=== PATIENT | male | born 1955 | race Caucasian/White ===

== ENCOUNTER 2016-09-02 11:12 | Emergency (ER) | payer BC ==
[~2016-09-02] VITALS: Ht 170.2 cm; Wt 127.3 kg
[2016-09-02 11:15] VITALS: TEMP 99.8
[2016-09-02] MEDS ORDERED: RT ADVAIR 228 DISKUS IH (11:26)
[2016-09-02 12:02] LABS: BASO # 0.1 (0.0-0.2); BASO % 0.7 % (0.0-2.0); EOS # 0.6 (0.0-0.7); EOS % 7.3 % (0-4.0); GRAN # 6.5 (1.4-6.5); GRAN % 77.1 % (42.2-75.2); HEMATOCRIT 46.4 % (42.0-52.0); HEMOGLOBIN 15.4 g/dl (13.5-18.0); LYMPH # 0.5 (1.2-3.4); LYMPH % 5.8 % (20.0-51.0); MEAN CELL VOLUME 91 fl (80.0-100.0); MEAN CORPUSCULAR HEMOGLOBIN 30 pg (27.0-31.0); MEAN CORPUSCULAR HGB CONC 33 g/dl (33.0-37.0); MEAN PLATELET VOLUME 9.6 fl (7.4-10.4); MONO # 0.8 (0.1-0.6); MONO % 8.9 % (1.7-9.3); PLATELET COUNT 316 K/mm3 (130-400); RED BLOOD COUNT 5.12 M/mm3 (4.20-5.60); REDCELL DISTRIBUTION WIDTH-CV 13.5 % (11.5-14.5); WHITE BLOOD COUNT 8.4 K/mm3 (4.8-10.8)
[2016-09-02 12:24] LABS: ADJUSTED CALCIUM 8.8 mg/dL (8.4-10.2); ALBUMIN 4.1 gm/dL (3.5-5.0); BILIRUBIN,TOTAL 0.8 mg/dL (0.0-1.0); CALCIUM 8.9 mg/dL (8.4-10.2); CREATININE, serum 0.79 mg/dL (0.66-1.25); TOTAL PROTEIN 7.4 gm/dL (6.4-8.2)
[2016-09-02] MEDS ORDERED: PREDNISONE20 MG PO (12:52)
[2016-09-02] MEDS ORDERED: ZITHROMAX Z PA250 MG PO (12:52)
[2016-09-02 13:13] VITALS: BP 131/63; PULSE 93
== END 2016-09-02 13:14 | disposition home or self-care (01) ==
LOC: COL.ER 11:12
PROVIDERS: Family Medicine
DX: J20.9 Acute bronchitis, unspecified (principal); Z87.891 Personal history of nicotine dependence; J45.909 Unspecified asthma, uncomplicated
CPT/HCPCS: J2930

== ENCOUNTER 2018-10-27 08:15 | Emergency (ER) | payer BC ==
[~2018-10-27] VITALS: Ht 170.2 cm; Wt 143.2 kg
[~2018-10-27 08:15] MED LIST: PREDNISONE20 MG PO; RT ADVAIR 228 DISKUS IH; ZITHROMAX Z PA250 MG PO
[2018-10-27 08:23] VITALS: TEMP 97.6
[2018-10-27 08:59] LABS: BASO % 0.4 % (0.0-2.0); EOS % 0.3 % (0-4.0); GRAN # 9.4 (1.4-6.5); GRAN % 84.4 % (42.2-75.2); HEMATOCRIT 46.5 % (42.0-52.0); HEMOGLOBIN 15.8 g/dl (13.5-18.0); LYMPH # 1.2 (1.2-3.4); LYMPH % 10.5 % (20.0-51.0); MEAN CELL VOLUME 90 fl (80.0-100.0); MEAN CORPUSCULAR HEMOGLOBIN 31 pg (27.0-31.0); MEAN CORPUSCULAR HGB CONC 34 g/dl (33.0-37.0); MEAN PLATELET VOLUME 9.6 fl (7.4-10.4); MONO # 0.4 (0.1-0.6); PLATELET COUNT 389 K/mm3 (130-400); RED BLOOD COUNT 5.15 M/mm3 (4.20-5.60); REDCELL DISTRIBUTION WIDTH-CV 13.5 % (11.5-14.5)
[2018-10-27 09:22] LABS: ALBUMIN 3.7 gm/dL (3.5-5.0); BILIRUBIN,TOTAL 0.7 mg/dL (0.0-1.0); CALCIUM 8.8 mg/dL (8.4-10.2); CREATININE, serum 0.71 mg/dL (0.66-1.25); POTASSIUM 3.7 mmol/L (3.4-5.0); TOTAL PROTEIN 6.9 gm/dL (6.4-8.2)
[2018-10-27] MEDS ORDERED: ZOFRAN ODT8 MG PO (10:15)
[2018-10-27 10:37] VITALS: BP 132/73; PULSE 70
== END 2018-10-27 10:40 | disposition home or self-care (01) ==
LOC: COL.ER 08:15
PROVIDERS: Emergency Medicine
DX: K46.9 Unspecified abdominal hernia without obstruction or gangrene (principal); R10.0 Acute abdomen; J45.909 Unspecified asthma, uncomplicated; Z79.51 Long term (current) use of inhaled steroids
CPT/HCPCS: J2270; J2405; J7030; Q9967

== ENCOUNTER 2020-05-01 21:08 | Emergency (ER) | payer BC ==
[~2020-05-01] VITALS: Ht 170.2 cm; Wt 129.5 kg
[~2020-05-01 21:08] MED LIST changes: +ZOFRAN ODT8 MG PO
[2020-05-01 23:05] LABS: BASO % 0.2 % (0.0-2.0); GRAN % 81.6 % (42.2-75.2); HEMATOCRIT 49.1 % (42.0-52.0); HEMOGLOBIN 16.5 g/dl (13.5-18.0); LYMPH # 0.7 (1.2-3.4); LYMPH % 10.9 % (20.0-51.0); MEAN CELL VOLUME 90 fl (80.0-100.0); MEAN CORPUSCULAR HEMOGLOBIN 30 pg (27.0-31.0); MEAN CORPUSCULAR HGB CONC 34 g/dl (33.0-37.0); MEAN PLATELET VOLUME 9.9 fl (7.4-10.4); MONO # 0.4 (0.1-0.6); PLATELET COUNT 240 K/mm3 (130-400); RED BLOOD COUNT 5.46 M/mm3 (4.20-5.60); REDCELL DISTRIBUTION WIDTH-CV 13.5 % (11.5-14.5)
[2020-05-01 23:16] LABS: ALBUMIN 4.1 gm/dL (3.5-5.0); BILIRUBIN,TOTAL 0.7 mg/dL (0.0-1.0); C-REACTIVE PROTEIN 6.3 mg/dL (0.0-0.9); CALCIUM 8.2 mg/dL (8.4-10.2); CREATININE, serum 0.85 (0.66-1.25); POTASSIUM 3.8 mmol/L (3.4-5.0); TOTAL PROTEIN 7.6 gm/dL (6.4-8.2)
[2020-05-02 00:10] VITALS: TEMP 100.8
[2020-05-02] MEDS ORDERED: AMOXICILLIN 8751 TAB PO (01:42)
[2020-05-02] MEDS ORDERED: DOXYCYCLINE 10100 MG PO (01:42)
[2020-05-02 02:20] VITALS: BP 122/59; PULSE 74
== END 2020-05-02 02:20 | disposition home or self-care (01) ==
LOC: COL.ER 21:08
PROVIDERS: Nurse Practitioner
DX: J18.1 Lobar pneumonia, unspecified organism (principal); J45.909 Unspecified asthma, uncomplicated; U07.1 COVID-19; Z79.1 Long term (current) use of non-steroidal anti-inflammatories (NSAID); Z79.51 Long term (current) use of inhaled steroids
CPT/HCPCS: J1100; J1885; J2405; J7030

== ENCOUNTER 2020-05-05 12:49 | Inpatient (IN) | payer BC ==
[~2020-05-05] VITALS: Ht 172.7 cm; Wt 141.0 kg
[~2020-05-05 12:49] MED LIST changes: +AMOXICILLIN 8751 TAB PO; +DOXYCYCLINE 10100 MG PO
[2020-05-05 13:59] LABS: HEMATOCRIT 43.6 % (42.0-52.0); HEMOGLOBIN 14.9 g/dl (13.5-18.0); MEAN CELL VOLUME 88 fl (80.0-100.0); MEAN CORPUSCULAR HEMOGLOBIN 30 pg (27.0-31.0); MEAN CORPUSCULAR HGB CONC 34 g/dl (33.0-37.0); MEAN PLATELET VOLUME 10.2 fl (7.4-10.4); PLATELET COUNT 307 K/mm3 (130-400); RED BLOOD COUNT 4.93 M/mm3 (4.20-5.60); REDCELL DISTRIBUTION WIDTH-CV 13.8 % (11.5-14.5)
[2020-05-05] MEDS ORDERED: DECADRON 4MG TAB4 MG PO (14:01)
[2020-05-05] MEDS ORDERED: ALBUTEROL0.83 MG/ML IH (14:02)
[2020-05-05] MEDS ORDERED: PROBIOTIC ACID1 EAC3 PO (14:03)
[2020-05-05 14:20] LABS: BAND 4 % (0-10); LYMPHOCYTE 8 % (20.0-51.0); NEUTROPHILS 87 % (42.0-75.2)
[2020-05-05 14:21] LABS: PLATELET ESTIMATE NORMAL (NORMAL)
[2020-05-05 15:09] LABS: ALBUMIN 3.5 gm/dL (3.5-5.0); BILIRUBIN,TOTAL 0.8 mg/dL (0.0-1.0); CALCIUM 8.1 mg/dL (8.4-10.2); CREATININE, serum 0.71 (0.66-1.25); POTASSIUM 3.3 mmol/L (3.4-5.0); TOTAL PROTEIN 6.8 gm/dL (6.4-8.2)
[2020-05-05 15:27] LABS: C-REACTIVE PROTEIN 33.3 mg/dL (0.0-0.9)
[2020-05-05 17:15] LABS: INR 1.2 (0.8-3.0); PROTHROMBIN TIME 13.2 SECONDS (9.7-12.8)
--- NOTE | 2020-05-05 17:27 | NUR ---
REPORT RCVD FROM ELGIN BOND IN ED. PT WILL ARRIVE TO MEDICAL FLOOR ROOM 305 SHORTLY.
[2020-05-05 17:45] LABS: ARTERIAL BLD GAS O2 SATURATION 93.9 % (92-100); ARTERIAL BLD GAS TCO2 CT 25.1; ARTERIAL BLOOD GAS BASE EXCESS 0.6 (-2-2); ARTERIAL BLOOD GAS PCO2 35.5 mmHg (35-45); ARTERIAL BLOOD GAS PO2 67.9 mmHg (80-100); ARTERIAL BLOOD GAS pH 7.45 (7.35-7.45)
[2020-05-05 17:46] LABS: MAGNESIUM 2.4 mg/dL (1.6-2.3); PHOSPHOROUS 3.7 mg/dL (2.5-4.5)
[2020-05-05 18:19] VITALS: BP 129/64; PULSE 74; TEMP 97.9
[2020-05-05 21:38] VITALS: BP 126/64; PULSE 72; TEMP 98
--- NOTE | 2020-05-05 23:27 | NUR ---
pt resting in bed sleeping, easy to arouse. pt denies pain and shortness of breath at this time. pt states that oxygen has helped with shortness of breath. oxygen at 4 liters NC. heart sounds are normal and regular. lung sounds are clear, respirations are in the upper 20s. pt denies cough. fluids are running at 125 mls per hour. no other needs at this time.
[2020-05-06] VITALS (7 sets, daily range): BP systolic 105–158; BP diastolic 49–85; PULSE 65–81; TEMP 97.6–98.1
--- NOTE | 2020-05-06 05:27 | NUR ---
pt slept in bed most of the night, with cpap from home. independent in the room, did not call for many needs throughout the night. still on oxygen at 4 liters NC.
--- NOTE | 2020-05-06 08:11 | NUR ---
Assessment complete. Patient sitting up at bedside awaiting breakfast at this time. States that he feels better than he did yesterday. Denies pain or discomfort at this time. IV site is CD&I, flushed well. O2 sat was 89 on vitals assessment, Slowly increased O2 via NC in order to get patient within 90%. HAd to increase to 6 1/2 L, patient denied feeling SOB at this time. Respiratory is aware. Patient denied other needs at this time. Call light is in reach.
[2020-05-06 08:17] LABS: ARTERIAL BLD GAS TCO2 CT 24.5; ARTERIAL BLOOD GAS HCO3 23.5 meq/L (22-26); ARTERIAL BLOOD GAS PO2 60.4 mmHg (80-100); ARTERIAL BLOOD GAS pH 7.44 (7.35-7.45)
[2020-05-06 10:48] LABS: HEMATOCRIT 43.2 % (42.0-52.0); HEMOGLOBIN 14.6 g/dl (13.5-18.0); MEAN CELL VOLUME 88 fl (80.0-100.0); MEAN CORPUSCULAR HEMOGLOBIN 30 pg (27.0-31.0); MEAN CORPUSCULAR HGB CONC 34 g/dl (33.0-37.0); MEAN PLATELET VOLUME 10.4 fl (7.4-10.4); PLATELET COUNT 348 K/mm3 (130-400); REDCELL DISTRIBUTION WIDTH-CV 13.8 % (11.5-14.5)
[2020-05-06 10:59] LABS: ALBUMIN 3.3 gm/dL (3.5-5.0); BILIRUBIN,TOTAL 0.5 mg/dL (0.0-1.0); CALCIUM 8.4 mg/dL (8.4-10.2); CREATININE, serum 0.63 (0.66-1.25); POTASSIUM 3.4 mmol/L (3.4-5.0); TOTAL PROTEIN 6.6 gm/dL (6.4-8.2)
[2020-05-06 11:57] LABS: LYMPHOCYTE 6 % (20.0-51.0); NEUTROPHILS 92 % (42.0-75.2); PLATELET ESTIMATE NORMAL (NORMAL)
[2020-05-06 12:59] LABS: COLLECTION METHOD CLEAN CATCH
[2020-05-06 13:30] LABS: MUCOUS Present /lpf; PH 6 (5-8); SQUAMOUS EPITHELIAL 0-2 /hpf; URINE APPEARANCE Hazy; URINE BACTERIA None Seen /hpf; URINE BILIRUBIN Negative (NEGATIVE); URINE BLOOD Negative (NEGATIVE); URINE COLOR Yellow; URINE GLUCOSE Negative (NEGATIVE); URINE KETONE Negative (NEGATIVE); URINE LEUKOCYTE ESTERASE Negative (NEGATIVE); URINE NITRATE Negative (NEGATIVE); URINE PROTEIN(semi-quant) 1+ (NEGATIVE); URINE RBC 0-2 /hpf; URINE UROBILINOGEN Negative (NEGATIVE)
[2020-05-06 15:26] LABS: ARTERIAL BLD GAS O2 SATURATION 92.5 % (92-100); ARTERIAL BLD GAS TCO2 CT 24.1; ARTERIAL BLOOD GAS BASE EXCESS 0.4 (-2-2); ARTERIAL BLOOD GAS HCO3 23.1 meq/L (22-26); ARTERIAL BLOOD GAS PCO2 31.9 mmHg (35-45); ARTERIAL BLOOD GAS PO2 63.1 mmHg (80-100); ARTERIAL BLOOD GAS pH 7.48 (7.35-7.45)
--- NOTE | 2020-05-06 15:59 | NUR ---
Trolley Car Mechanic attempted to contact patient by phone as he is COVID positive. SW then contacted patient's , Lissa (ph#[phone]) to discuss discharge planning. Patient lives in [place] with his and sees Dr. Gutierrez for primary care. Patient obtains medications from [facility] pharmacy and uses a CPAP at night. Lissa reports patient does not have Advance Directives. Patient is normally independent with ADLS and plans to return home upon discharge. SW will continue to follow.
--- NOTE | 2020-05-06 16:10 | NUR ---
placed pt on airvo 40L fio2 68%. spo2 91%. rn notified
--- NOTE | 2020-05-06 17:05 | NUR ---
Patient has had a good day. Still states that he feels better. He denies feeling SOB breath but pt is now on AIRVO O2 in an effort to improve PO2 levels. Patient is complaint and understands why this is necessary. IVF continue to infuse. Pt continues to deny pain. No other needs were expressed at this time. Call light is in reach.
--- NOTE | 2020-05-06 19:05 | NUR ---
Received report from Mary. Patient is eating his dinner. No complains or needs at this time. He is on airvo at 40L. He is alert, oriented and independent.
--- NOTE | 2020-05-06 20:30 | NUR ---
Patient's blood glucose is 183mg/dl. He refuses the insulin. He said he was not diabetic and never had insulin in his life and he doesn't want to take it.
--- NOTE | 2020-05-06 21:16 | NUR ---
Called blood bank to follow up regarding covid convalsecent plasma and Ronen said that it will probably be available tomorrow.
[2020-05-07] VITALS (12 sets, daily range): BP systolic 112–160; BP diastolic 50–86; PULSE 62–76; TEMP 97.5–98.1
--- NOTE | 2020-05-07 05:56 | NUR ---
Patient states he was able to sleep. He remained afebrile. He denies pain. Still on airvo at 40L, 70%. SPO2 range at 90%-94%. No difficulty of breathing noted.
[2020-05-07 09:10] LABS: HEMOGLOBIN 14.4 g/dl (13.5-18.0); MEAN CELL VOLUME 90 fl (80.0-100.0); MEAN CORPUSCULAR HEMOGLOBIN 30 pg (27.0-31.0); MEAN CORPUSCULAR HGB CONC 34 g/dl (33.0-37.0); MEAN PLATELET VOLUME 11.4 fl (7.4-10.4); PLATELET COUNT 348 K/mm3 (130-400); RED BLOOD COUNT 4.79 M/mm3 (4.20-5.60)
[2020-05-07 09:11] LABS: ALBUMIN 3.1 gm/dL (3.5-5.0); BILIRUBIN,TOTAL 0.6 mg/dL (0.0-1.0); CALCIUM 8.2 mg/dL (8.4-10.2); CREATININE, serum 0.64 (0.66-1.25); POTASSIUM 3.8 mmol/L (3.4-5.0); TOTAL PROTEIN 6.3 gm/dL (6.4-8.2)
[2020-05-07 10:43] LABS: ARTERIAL BLD GAS O2 SATURATION 93.9 % (92-100); ARTERIAL BLD GAS TCO2 CT 20.1; ARTERIAL BLOOD GAS BASE EXCESS -3.5 (-2-2); ARTERIAL BLOOD GAS HCO3 19.2 meq/L (22-26); ARTERIAL BLOOD GAS PCO2 28.7 mmHg (35-45); ARTERIAL BLOOD GAS PO2 67.9 mmHg (80-100); ARTERIAL BLOOD GAS pH 7.44 (7.35-7.45)
[2020-05-07 11:14] LABS: BAND 1 % (0-10); LYMPHOCYTE 12 % (20.0-51.0); NEUTROPHILS 83 % (42.0-75.2); PLATELET ESTIMATE NORMAL (NORMAL)
--- NOTE | 2020-05-07 17:53 | NUR ---
Patient alert and oriented. denies any pain at this time. dyspnea on exertion. patient ambulate independently to the bathroom. patient recieved 1 unit of convalescent plasma, no adverse reaction noted. patient remain afebrile. no diarrhea or nausea. 100mg/100mL Veklury today. refused novolog and levemir insulin. RN informed Dr Freeman. RN provide patient with education on Convalscent plasma, influence of decadron on bloof glucose. Patient resting in bed at this time.
--- NOTE | 2020-05-07 19:05 | NUR ---
Received report from [facility]. Seen patient awake, sitting on bed. He is about to eat his dinner. He states he wanted to take a shower but he will call once he's ready.
--- NOTE | 2020-05-07 20:03 | NUR ---
Patient in the bathroom taking a shower. Informed Marcel of ICU that his tele is out for the meantime. Informed patient to use his call light once he's done and put back his airvo immediately.
--- NOTE | 2020-05-07 20:30 | NUR ---
Patient done taking a shower. Changed patient's bed sheets, pillow cases and blankets. Hooked back patient to tele, nDreams and his IV fluids. He reports he felt better after taking a shower. Checked on his SPO2 and it was at 94%.
--- NOTE | 2020-05-07 22:46 | NUR ---
This nurse called lab to inquire if they have covid convalescent plasma since patient only got 1 unit and the order was to transfuse 2 units. He said they don't have that now and they have to request tomorrow from [facility].
[2020-05-08 05:03] VITALS: BP 148/64; PULSE 62; TEMP 98
[2020-05-08 05:37] LABS: ARTERIAL BLD GAS O2 SATURATION 92.8 % (92-100); ARTERIAL BLD GAS TCO2 CT 24.4; ARTERIAL BLOOD GAS BASE EXCESS -0.3 (-2-2); ARTERIAL BLOOD GAS HCO3 23.3 meq/L (22-26); ARTERIAL BLOOD GAS PCO2 35.2 mmHg (35-45); ARTERIAL BLOOD GAS pH 7.44 (7.35-7.45)
--- NOTE | 2020-05-08 06:08 | NUR ---
Patient says he feels much better and was able to sleep well specially that he was able to take a shower. SPO2 has been at 93-94% and still at airvo 45L.
--- NOTE | 2020-05-08 06:31 | NUR ---
Patient is a hard stick. Tried finding a vein for lab works this morning but cannot find one and he has some bruises from ABG and daily lab works. Informed incinerator plant laborer if they can draw blood this morning.
--- NOTE | 2020-05-08 07:36 | NUR ---
SHIFT REPORT RECEIVED. DONE OUTSIDE DOOR PT IN ISOLATION. CHECKED ON AND DENIES NEEDS AT THIS TIME
[2020-05-08 09:06] VITALS: BP 138/71; PULSE 64; TEMP 97.4
--- NOTE | 2020-05-08 09:42 | NUR ---
MORNING MEDS GIVEN. LAB TO ATTEMPT SECOND DRAW. PT DENIES PAIN. UP AD JUAN MIGUEL. ON 45L AIRVO TOLERATING WELL. 02 93% CHARTED. TOLERATING IVF. NON-PITTING TRACE BLE edema. STRONG MOIST COUGH WITH DEEP BREATHING. LUNG DIMINISHED THROUGHOUT. NO SPUTUM THUS FAR BUT PT AWARE OF NEED. EDUCATED ON SHORT AND LONG ACTING INSULIN AND COMPLIANT WITH ORDERS. WAS HESITATNT SINCE IT'S NEW ORDER. DENIES [place], DIARRHEA, VISION CHANGED. REPORTS SOB WITH EXERTION BUT ABLE TO MOVE AROUND ROOM WITHOUT ISSUES.
--- NOTE | 2020-05-08 12:50 | NUR ---
Attempted to get blood draw from patient x 3. This was the 3rd attempt for the patient to have his blood drawn. Spoke with Dr. Freeman regarding the need for venous draws today. He states we can hold off on todays blood draws and then insert PICC in AM for labs/plasma/IV Fluids and antibiotics. Patient's nurse made aware. Called lab to cancel todays lab's and that after PICC is inserted lab can be drawn in AM. IV access is still available to adminster antibiotics and fluids. New order placed for PICC per Dr. Freeman.
[2020-05-08 13:00] VITALS: PULSE 62; TEMP 97.6
--- NOTE | 2020-05-08 16:17 | NUR ---
PT TRANSFERED FROM ROOM 305 TO 303 @ 1300 DUE TO WINDOW ISSUES. ALL ITEMS TRANSFERED. NO CONCERNS FROM PT
[2020-05-08 17:01] VITALS: BP 153/72; PULSE 60; TEMP 97
--- NOTE | 2020-05-08 17:04 | NUR ---
PT BG 201. HE REPORTS HE RECENTLY ATE GRAPES AND FEELS VALUE IS NOT ACCURATE. REFUSED 1700 HUMALOG. CONTINUES ON AIRVO @ 45L WITH O2 SAT 95%. NO TITRATION THIS SHIFT PER RT PT WAS 93% UPON HER CHECK.
--- NOTE | 2020-05-08 18:07 | NUR ---
pt received one unit of FFP 05/07 @ 1215 despite order comments ordering 2 units. second unit was not available per report. second dose still unavailable at this time. checked with Dr Freeman and he will double check with pharmacy tomorrow about policy/ way forward. spoke to Carrillo in lab and he will attempt to obtain a second dose for tomorrow in case decision to transfuse is made.
--- NOTE | 2020-05-08 19:28 | NUR ---
Received report from Lillie. Seen patient awake, lying in bed. Still on Airvo at 45L. With ongoing NS at 125ml/hr. Call light within reach.
[2020-05-08 20:35] VITALS: BP 177/77; PULSE 59; TEMP 97.6
[2020-05-08 21:34] VITALS: BP 185/85
--- NOTE | 2020-05-08 21:41 | NUR ---
This nurse called JEANA Austin regarding increase blood pressure. He was at 177/77. Rechecked patient's blood pressure and it went up to 185/85. She ordered for Hydralazine 10mg tab.
[2020-05-09] VITALS (8 sets, daily range): BP systolic 133–177; BP diastolic 60–87; PULSE 59–74; TEMP 97–97.9
--- NOTE | 2020-05-09 04:20 | NUR ---
Patient's IV site got infiltrated already. Removed IV and placed warm blanket on patient's right arm. Instructed patient to maintain elevating his right arm. He is scheduled to have PICC placement today.
[2020-05-09 05:35] LABS: ARTERIAL BLD GAS O2 SATURATION 95.8 % (92-100); ARTERIAL BLD GAS TCO2 CT 24.9; ARTERIAL BLOOD GAS BASE EXCESS -0.4 (-2-2); ARTERIAL BLOOD GAS HCO3 23.7 meq/L (22-26); ARTERIAL BLOOD GAS PCO2 37.4 mmHg (35-45); ARTERIAL BLOOD GAS PO2 82.3 mmHg (80-100); ARTERIAL BLOOD GAS pH 7.42 (7.35-7.45)
--- NOTE | 2020-05-09 05:48 | NUR ---
Patient had uneventful night. He is afebrile. SPO2 has been good and it is consistent with 95-96%. Elevated right arm with blanket. He still refuses his Novolog.
--- NOTE | 2020-05-09 06:59 | NUR ---
REPORT RECEIVED. PT AWAKE AND LYING IN BED. DENIES NEEDS AT THIS TIME
[2020-05-09 11:53] LABS: ALBUMIN 2.7 gm/dL (3.5-5.0); BILIRUBIN,TOTAL 0.6 mg/dL (0.0-1.0); CALCIUM 7.6 mg/dL (8.4-10.2); CREATININE, serum 0.61 (0.66-1.25); POTASSIUM 3.8 mmol/L (3.4-5.0); TOTAL PROTEIN 5.4 gm/dL (6.4-8.2)
[2020-05-09 15:10] LABS: HEMATOCRIT 38.8 % (42.0-52.0); HEMOGLOBIN 12.8 g/dl (13.5-18.0); MEAN CELL VOLUME 91 fl (80.0-100.0); MEAN CORPUSCULAR HEMOGLOBIN 30 pg (27.0-31.0); MEAN CORPUSCULAR HGB CONC 33 g/dl (33.0-37.0); MEAN PLATELET VOLUME 10.5 fl (7.4-10.4); PLATELET COUNT 435 K/mm3 (130-400); RED BLOOD COUNT 4.28 M/mm3 (4.20-5.60)
[2020-05-09 15:40] LABS: LYMPHOCYTE 5 % (20.0-51.0); MYELOCYTE 1 % (0-0); NEUTROPHILS 86 % (42.0-75.2); PLATELET ESTIMATE INCREASED (NORMAL)
--- NOTE | 2020-05-09 18:26 | NUR ---
END OF SHIFT NOTE: PT AOX4. REPORTS SOME DYSPNEA WITH EXERTION BUT TOLERATES ACTIVITY IN ROOM. ON 40L AIRVO WITH O2 SAT 94-98%. DENIES [place], DIARRHEA. TOLERATING FOODS. NO COUGH THIS SHIFT. IVF DC'D PER ORDERS. PICC TO RUE EASY FLUSH WITH POSITIONAL SLOW DRAW BACK. LABS DRAWN AND CBCB RE-DRAWN DUE TO CLOTTING. TOLERATING REMDESIVIR. CONTINUES TO REFUSED SSI STATING HE IS NOT DIABETIC AND WILL NOT COMPLY. ACCEPTED LEVIMIR. BP ELEVATED THIS EVENING. NO S/S DISTRESS. PT REPORTS NOW POSITIVE FOR COVID-19 AND HE WILL STAY IN [facility] ONCE DISCHARGED TENTATIVE SATURDAY AFTER DOSE 5 OF REMDESIVIR. NO NEW CONCERNS THIS SHIFT. RE-CONFIRMED WITH DR LANDEROS FOR ONLY ONE UNIT CONVALESCENT FFP WAS TO BE INFUSED.
--- NOTE | 2020-05-09 22:03 | NUR ---
Pt resting in bed, Airvo on at 40 liters. pt denies shortness of breath and cough. pt denies pain or chest pain. assessment completed. umbilical hernia noted, midline. no edema noted. no further needs at this time will continue to monitor.
[2020-05-10 04:00] VITALS: BP 147/72; PULSE 72; TEMP 97.7
--- NOTE | 2020-05-10 04:59 | NUR ---
pt slept in bed most of the night, checked on throughout shift. airvo still on 40 liters. no other needs at this time.
[2020-05-10 07:46] LABS: HEMATOCRIT 43.1 % (42.0-52.0); HEMOGLOBIN 14.3 g/dl (13.5-18.0); MEAN CELL VOLUME 91 fl (80.0-100.0); MEAN CORPUSCULAR HEMOGLOBIN 30 pg (27.0-31.0); MEAN CORPUSCULAR HGB CONC 33 g/dl (33.0-37.0); MEAN PLATELET VOLUME 10.9 fl (7.4-10.4); RED BLOOD COUNT 4.73 M/mm3 (4.20-5.60); REDCELL DISTRIBUTION WIDTH-CV 13.8 % (11.5-14.5)
[2020-05-10 07:54] LABS: PLATELET COUNT 546 K/mm3 (130-400)
[2020-05-10 07:56] LABS: ALBUMIN 2.9 gm/dL (3.5-5.0); BILIRUBIN,TOTAL 0.6 mg/dL (0.0-1.0); CALCIUM 7.9 mg/dL (8.4-10.2); CREATININE, serum 0.67 (0.66-1.25); POTASSIUM 4.3 mmol/L (3.4-5.0); TOTAL PROTEIN 5.8 gm/dL (6.4-8.2)
--- NOTE | 2020-05-10 08:00 | NUR ---
Assessment completed, alert/oriented, vital signs stable and afebrile, denies pain or discomfort, diminished lung bases with scattered insp/exp wheezing noted throughtout, on 20L o2 via Airvo, denies feeling SOA or dyspnic, heart RRR, distal pulses are palapble, eating and drinking well, denies other needs at this t jose
[2020-05-10 08:14] VITALS: BP 129/71; PULSE 61; TEMP 97.1
[2020-05-10 09:03] LABS: BAND 4 % (0-10); LYMPHOCYTE 5 % (20.0-51.0); NEUTROPHILS 85 % (42.0-75.2); PLATELET ESTIMATE INCREASED (NORMAL)
--- NOTE | 2020-05-10 16:45 | NUR ---
The patient is COVID positive. SW attempted to contact the patient's room phone and personal phone to follow up. The patient is now down to 20 liters of oxygen and plan is to continue to wean down.
[2020-05-10 19:45] VITALS: BP 143/75; PULSE 82; TEMP 97.4
--- NOTE | 2020-05-10 20:30 | NUR ---
Initial shift assessment done- VSS, afebrile, denies pain/SOB, o2 at 5L/high flow,sats 94%, no requests, states he feels fine tonight- very pleasant,, states he,s ready to go home if he can get the o2 for home set up--
[2020-05-10 23:16] VITALS: BP 152/87; PULSE 69; TEMP 97.6
[2020-05-11 03:50] VITALS: BP 123/76; PULSE 73; TEMP 97.4
--- NOTE | 2020-05-11 05:42 | NUR ---
Quiet night- no requests-- did sleep well between interuptions-VSS
--- NOTE | 2020-05-11 07:29 | NUR ---
TURNED PATIENT DOWN TO 3LPM SPO2 IS 92%.
[2020-05-11 07:44] VITALS: BP 125/54; PULSE 78; TEMP 97.5
--- NOTE | 2020-05-11 07:44 | NUR ---
Lying in bed with eyes open. Alert and oriented x3. Hopes to go home today. Denies pain or shortness of air. O2 at 3L via high flow. Patient denies any questions or concerns at this time.
--- NOTE | 2020-05-11 09:42 | NUR ---
Resting in bed with eyes closed. Respirations even and unlabored. No signs or symptoms of discomfort noted at this time.
--- NOTE | 2020-05-11 11:29 | NUR ---
Lying in bed in supine position. Patient says that Dr. Peterson told him he could go home in the morning and he is excited for this. Telemetry removed at this time per Dr. Peterson's orders. Patient says that he is doing okay at this time. Oxygen at 3L high flow cannula. Denies any additional needs.
[2020-05-11 11:31] VITALS: BP 123/70; PULSE 80; TEMP 97.1
--- NOTE | 2020-05-11 12:41 | NUR ---
Sitting up in chair watching TV. Patient says that he is starting to get bored. Took his oxygen off about 20 minutes ago because he wanted to see where his SpO2 level would be at. SpO2 at this time at 90% on room air. Patient wants to leave off for a little bit longer. Lunch tray provided to the patient. Denies any additional needs at this time.
[2020-05-11 15:17] VITALS: BP 110/63; PULSE 79; TEMP 97.3
--- NOTE | 2020-05-11 15:23 | NUR ---
Lying in bed watching TV and on and off falling asleep. Denies pain. SpO2 90% on room air. Patient denies shortness of air or cough. Has been up to bathroom several times to urinate without difficulty. Denies additional needs at this time.
--- NOTE | 2020-05-11 16:15 | NUR ---
LAURE contacted the patient's room phone to follow up and review d/c plan. The patient states that he is doing better and may be able to discharge tomorrow. He states that he plans on returning home with his and is ready to get home. He states that he may need oxygen when he goes home. SW to monitor.
--- NOTE | 2020-05-11 18:00 | NUR ---
Lying in bed with eyes open watching TV. Provided dinner tray to the patient. Patient denies pain, shortness of air, or cough. Denies any additional needs at this time.
[2020-05-11 20:00] VITALS: BP 112/70; PULSE 80; TEMP 97.4
--- NOTE | 2020-05-11 21:35 | NUR ---
Pt resting in bed, assessment completed. pt on room air, oxygen sat at 90%. gave meds per OCT, no insulin required. pt denies pain and shortness of breath. no fever, will continue to monitor.
[2020-05-12 00:15] VITALS: BP 114/53; PULSE 83; TEMP 98
[2020-05-12 04:49] VITALS: BP 120/75; PULSE 77; TEMP 98.5
--- NOTE | 2020-05-12 05:39 | NUR ---
Pt sleeping most of the night, on room air. oxygen sat continue to be in the 90s. no complaints of pain or shortness of breath, pt independent in the room. no other needs at this time.
[2020-05-12 07:06] LABS: HEMOGLOBIN 14.1 g/dl (13.5-18.0); MEAN CELL VOLUME 92 fl (80.0-100.0); MEAN CORPUSCULAR HEMOGLOBIN 31 pg (27.0-31.0); MEAN CORPUSCULAR HGB CONC 34 g/dl (33.0-37.0); MEAN PLATELET VOLUME 10.6 fl (7.4-10.4); PLATELET COUNT 483 K/mm3 (130-400); RED BLOOD COUNT 4.58 M/mm3 (4.20-5.60); REDCELL DISTRIBUTION WIDTH-CV 14.2 % (11.5-14.5)
--- NOTE | 2020-05-12 07:17 | NUR ---
patient on room all night spo2 88-91%. TOLERATED WELL
[2020-05-12 07:19] LABS: CREATININE, serum 0.73 (0.66-1.25); MAGNESIUM 2.3 mg/dL (1.6-2.3)
[2020-05-12 07:38] VITALS: BP 135/59; PULSE 79; TEMP 97.6
[2020-05-12 07:54] LABS: LYMPHOCYTE 22 % (20.0-51.0); METAMYELOCYTE 1 % (0-0); NEUTROPHILS 73 % (42.0-75.2); PLATELET ESTIMATE NORMAL (NORMAL)
--- NOTE | 2020-05-12 08:50 | NUR ---
Pt awake and alert upon entry this morning, no C/O pain at this tiem, expresses desire to return home, shift assessments complete, left Pt call light in reach, bed in lowest position.
[2020-05-12] MEDS ORDERED: DECADRON6 MG PO (11:17)
[2020-05-12] MEDS ORDERED: PROAIR HFA0.09 MG/AC IH (11:18)
--- NOTE | 2020-05-12 11:26 | NUR ---
PATIENT REQUIRES 2 LPM DURING AMBULATION AND NO OXYGEN AT REST.
--- NOTE | 2020-05-12 11:36 | NUR ---
The patient qualifies for oxgyen. Digital Marketing Executive contacted the patient via cell phone to discuss DME choice. [facility] was chosen and referral sent. SW contacted Geovanna to inform her about the oxygen order. They will review the order and will be able to deliver today prior to discharge. LAURE collaborated the above information with the patient's nurse.
--- NOTE | 2020-05-12 14:51 | NUR ---
[facility] is not able to deliver the oxygen today, due to their route driver salesperson being in [place]. Lining Folder, Joya, notified the patient. SW followed up with the patient about this. The patient states that his can pick it up. SW contacted his , Lissa. Lissa states that she has already picked up the oxygen from [facility] and is on her way to chart picker the patient. The patient is to discharge back home with his today, 05/12. No additional needs at this time.
--- NOTE | 2020-05-12 15:25 | NUR ---
Pt discharged to home, discussed discharge packet with Pt, escorted Pt to entrance via WC, Pt left with spouse via private auto.
== END 2020-05-12 15:15 | disposition home or self-care (01) | DRG 177 ==
LOC: COL.ER 12:49 → PEDS 14:57 → MEDICAL 14:57 → PEDS 05-08 13:40 → MEDICAL 05-08 13:40 → PEDS 05-08 23:00
PROVIDERS: Internal Medicine; Nurse Practitioner
PROC: XW033E5 Introduction of Remdesivir Anti-infective into Peripheral Vein, Percutaneous Approach, New Technology Group 5 (ICD-10-PCS; principal; 2020-05-05)
PROC: XW13325 Transfusion of Convalescent Plasma (Nonautologous) into Peripheral Vein, Percutaneous Approach, New Technology Group 5 (ICD-10-PCS; 2020-05-05)
DX: U07.1 COVID-19 (principal); J12.89 Other viral pneumonia; J96.01 Acute respiratory failure with hypoxia; Z68.42 Body mass index [BMI] 45.0-49.9, adult; E87.6 Hypokalemia; E66.01 Morbid (severe) obesity due to excess calories; R73.9 Hyperglycemia, unspecified; T38.0X5A Adverse effect of glucocorticoids and synthetic analogues, initial encounter; K46.9 Unspecified abdominal hernia without obstruction or gangrene; Z87.891 Personal history of nicotine dependence
CPT/HCPCS: 99223-AI; 99232-AI; 99233-AI; 99239; C1751; C1892; J1100; J1650; J1815; J7030; J7050; J8540